=== PATIENT | male | born 1955 | race Caucasian/White ===

== ENCOUNTER 2017-04-16 01:41 | Emergency (ER) | payer OTHER ==
[2017-04-16] MEDS ORDERED: Ondansetron INJ* 2 MG/ML VIAL IV ONE ×2 (02:00→03:16)
[2017-04-16] MEDS ORDERED: NS 0.9% 1000 ML* 1,000 ML IV ONE (02:00)
[2017-04-16] MEDS ORDERED: Morphine INJ* 2 MG/ML 1 ML SYRINGE IV ONE ×2 (02:00→03:16)
[2017-04-16 02:22] LABS: Hematocrit 49 % (42-52); Hemoglobin 16.7 g/dl (14.0-18.0); Mean Corpuscular HGB Conc 34 g/dl (31-36); Mean Corpuscular Hemoglobin 29 pg (27-31); Mean Corpuscular Volume 85 fL (80-94); Mean Platelet Volume 8 um3 (7.4-10.4); Red Blood Count 5.73 10^6/ul (4.0-5.4); Red Cell Distribution Width 13 % (10.5-15); White Blood Count 11.3 10^3/ul (3.5-10.8)
[2017-04-16 02:45] LABS: Albumin 4.1 g/dL (3.2-5.2); BUN/Creatinine Ratio 23.2 (8-20); C Reactive Protein 3.79 mg/L (< 5.00); Calcium 9.1 mg/dL (8.6-10.3); EGFR Non-African American 66.9 (>60); Globulin 2.5 g/dL (2-4); Potassium 3.6 mmol/L (3.5-5.0); Total Bilirubin 2.4 mg/dL (0.2-1.0); Total Protein 6.6 g/dL (6.4-8.9)
[2017-04-16] MEDS ORDERED: Iohexol 300* (CONTRAST) 10 ML SDV IV ONE (03:02)
--- NOTE | 2017-04-16 05:11 | ED ---
Arianne Falcon Edward, scribed for Remy Helms MD on 04/16/17 at 0200 . Abdominal Pain/Male - HPI Summary HPI Summary: 61 y/o male presents to ED c/o intermittent RUQ ABD pain for 2 days. The pain has gotten progressively worse since it started, most severe at 21:00 tonight. The pain radiates to the rest of the ABD and is aggravated by laying down. Associated sx: N/V. PMHx HTN. - History of Current Complaint Stated Complaint: ABD PAIN Hx Obtained From: Patient Onset/Duration: Gradual Onset, Lasting Days - 2 days ago Timing: Intermittent Location: Discrete At: RUQ Associated Signs And Symptoms: Positive: Nausea, Vomiting - Allergies/Home Medications Allergies/Adverse Reactions: Allergies Allergy/AdvReac Type Severity Reaction Status Date / Time No Known Allergies Allergy Verified 06/01/16 10:07 PMH/Surg Hx/FS Hx/Imm Hx Previously Healthy: No Endocrine/Hematology History: Denies: Hx Diabetes Cardiovascular History: Reports: Hx Hypertension Denies: Hx Angina, Hx Coronary Artery Disease, Hx Hypercholesterolemia, Hx Myocardial Infarction, Hx Valvular Heart Disease Respiratory History: Denies: Hx Asthma, Hx Chronic Obstructive Pulmonary Disease (COPD) Sensory History: Reports: Hx Vision Problem Opthamlomology History: Reports: Hx Vision Problem - Surgical History Surgery Procedure, Year, and Place: vasectomy and lipoma removals - Family History Known Family History: Positive: Cardiac Disease - angina but not CT, Hypertension - Social History Alcohol Use: Weekly Alcohol Amount: 3-4 drinks/week Hx Substance Use: No Substance Use Type: Reports: None Hx Tobacco Use: No Smoking Status (MU): Never Smoked Tobacco Review of Systems Constitutional: Negative Eyes: Negative ENT: Negative Cardiovascular: Negative Respiratory: Negative Positive: Abdominal Pain - @ RUQ, Vomiting, Nausea Genitourinary: Negative Musculoskeletal: Negative Skin: Negative Neurological: Negative Psychological: Normal All Other Systems Reviewed And Are Negative: Yes Physical Exam Triage Information Reviewed: Yes Vital Signs On Initial Exam: Initial Vitals Temp Pulse Resp BP Pulse Ox 96.9 F 66 18 175/103 98 04/16/17 01:41 04/16/17 01:41 04/16/17 01:41 04/16/17 01:41 04/16/17 01:41 Vital Signs Reviewed: Yes Appearance: Positive: Well-Appearing, Pain Distress - mild discomfort, Obese Skin: Positive: Warm Head/Face: Positive: Normal Head/Face Inspection Eyes: Positive: REGINO ENT: Positive: Hearing grossly normal Neck: Positive: Supple Respiratory/Lung Sounds: Positive: Clear to Auscultation, Breath Sounds Present Cardiovascular: Positive: RRR Abdomen Description: Positive: No Organomegaly, Soft, Other: - mild ruq tenderness Bowel Sounds: Positive: Present Musculoskeletal: Positive: Strength/ROM Intact Neurological: Positive: Alert, Oriented to Person Place, Time Diagnostics - Vital Signs Vital Signs Temp Pulse Resp BP Pulse Ox 04/16/17 04:30 64 133/86 93 04/16/17 04:21 136/83 04/16/17 04:09 63 95 04/16/17 04:00 64 124/77 94 04/16/17 03:30 61 128/84 94 04/16/17 03:20 14 04/16/17 03:00 58 152/88 95 04/16/17 02:30 57 147/89 93 04/16/17 02:23 55 161/86 95 04/16/17 02:17 16 04/16/17 02:00 60 93 04/16/17 01:58 63 94 04/16/17 01:56 147/95 04/16/17 01:51 96.9 F 66 18 175/103 98 04/16/17 01:41 96.9 F 66 18 175/103 98 - Laboratory Lab Results: Lab Results 04/16/17 04/16/17 04/16/17 Range/Units 02:10 02:10 02:10 WBC 11.3 H (3.5-10.8) 10^3/ul RBC 5.73 H (4.0-5.4) 10^6/ul Hgb 16.7 (14.0-18.0) g/dl Hct 49 (42-52) % MCV 85 (80-94) fL MCH 29 (27-31) pg MCHC 34 (31-36) g/dl RDW 13 (10.5-15) % Plt Count 172 (150-450) 10^3/ul MPV 8 (7.4-10.4) um3 Neut % (Auto) 67.0 (38-83) % Lymph % (Auto) 23.3 L (25-47) % [place] % (Auto) 7.6 (1-9) % Eos % (Auto) 1.4 (0-6) % Baso % (Auto) 0.7 (0-2) % Absolute Neuts (auto) 7.6 (1.5-7.7) 10^3/ul Absolute Lymphs (auto) 2.6 (1.0-4.8) 10^3/ul Absolute Monos (auto) 0.9 H (0-0.8) 10^3/ul Absolute Eos (auto) 0.2 (0-0.6) 10^3/ul Absolute Basos (auto) 0.1 (0-0.2) 10^3/ul Absolute Nucleated RBC 0.03 10^3/ul Nucleated RBC % 0.2 Sodium 139 (133-145) mmol/L Potassium 3.6 (3.5-5.0) mmol/L Chloride 105 (101-111) mmol/L Carbon Dioxide 26 (22-32) mmol/L Anion Gap 8 (2-11) mmol/L BUN 26 H (6-24) mg/dL Creatinine 1.12 (0.67-1.17) mg/dL Est GFR ( Amer) 86.0 (>60) Est GFR (Non-Af Amer) 66.9 (>60) BUN/Creatinine Ratio 23.2 H (8-20) Glucose 115 H (70-100) mg/dL Lactic Acid 0.6 (0.5-2.0) mmol/L Calcium 9.1 (8.6-10.3) mg/dL Magnesium 2.0 (1.9-2.7) mg/dL Total Bilirubin 2.40 H (0.2-1.0) mg/dL AST 202 H (13-39) U/L ALT 157 H (7-52) U/L Alkaline Phosphatase 102 (34-104) U/L C-Reactive Protein 3.79 (< 5.00) mg/L Total Protein 6.6 (6.4-8.9) g/dL Albumin 4.1 (3.2-5.2) g/dL Globulin 2.5 (2-4) g/dL Albumin/Globulin Ratio 1.6 (1-3) Lipase 25 (11.0-82.0) U/L Result Diagrams: 04/16/17 02:10 04/16/17 02:10 Lab Statement: Any lab studies that have been ordered have been reviewed, and results considered in the medical decision making process. - CT ABD/PEL CT CT Interpretation: No Acute Changes - Gallstones. Splenic Scarring. No definite acute pathology. CT Interpretation Completed By: Radiologist Re-Evaluation - Re-Evaluation 1 Re-Evaluation Time: 05:06 Change: Improved Comment: resulkts d/w pt Abdominal Pain Fem Course/Dx - Course Assessment/Plan: 61 y/o male presents to ED c/o intermittent RUQ ABD pain for 2 days. The pain has gotten progressively worse since it started, most severe at 21:00 tonight. The pain radiates to the rest of the ABD and is aggravated by laying down. Associated sx: N/V. PMHx HTN. ABD/PEL CT showed: Gallstones. Splenic Scarring. No definite acute pathology. Patient will be discharged home with Biliary Colic, f/u with PCP. - Diagnoses Provider Diagnoses: Biliary colic Discharge - Discharge Plan Condition: Improved Disposition: HOME Patient Education Materials: Biliary Colic (ED), Diet for Stomach Ulcers and Gastritis (ED) Referrals: Kirit Oh MD [Primary Care Provider] - 3 Days (Please f/u in 2-3 days) The documentation as recorded by the Arianne ellington Edward accurately reflects the service I personally performed and the decisions made by , Remy Helms MD.
[2017-04-16 05:19] VITALS: BP 140/74
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
== END 2017-04-16 05:18 | disposition home or self-care (01) ==
LOC: ED 01:41
DX: K80.50 Calculus of bile duct without cholangitis or cholecystitis without obstruction (principal); R11.2 Nausea with vomiting, unspecified; I10 Essential (primary) hypertension; E66.9 Obesity, unspecified; K57.30 Diverticulosis of large intestine without perforation or abscess without bleeding; R16.1 Splenomegaly, not elsewhere classified
CPT/HCPCS: 36415; 74177; 80053; 83605; 83690; 83735; 85025; 86140; 96374; 96375; 96376; 99285; J2270; J2405; Q9967

== ENCOUNTER 2017-05-30 09:22 | Day surgery (SDC) | payer OTHER ==
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
[~2017-05-30 09:22] MED LIST: Buffered Lidocaine 0.9% SYRIN* 5 ML/SYR SYRINGE INTRADERM ONE; Dexamethasone IV* 4 MG/ML 1 ML (4 MG) ONE; DiMENhydriNATE IV* 50 MG/ML VIAL ONE; Famotidine IV* 10 MG/ML 2 ML (20 mg) IV ONE; Ketorolac INJ* 30 MG/ML 1 ML VIAL ONE; Lidocaine 2% PF * 5 ML VIAL ONE; Midazolam* 1 MG/ML 5 ML VIAL (5 MG) ONE; Ondansetron INJ* 2 MG/ML VIAL ONE; Propofol* 10 MG/ML 20 ML BTL IV PUSH ONE; Succinylcholine* 20 MG/ML 10 ML VIAL ONE; fentaNYL* 50 MCG/ML 2 ML VIAL (100 MCG VIAL) ONE
[2017-05-30] MEDS ORDERED: ceFAZolin 2 GM PREMIX (*) 50 ML IVPB ONE (09:28)
[2017-05-30] MEDS ORDERED: Famotidine IV* 10 MG/ML 2 ML (20 mg) ONE (09:28)
[2017-05-30] MEDS ORDERED: Buffered Lidocaine 0.9% SYRIN* 5 ML/SYR SYRINGE ONE (09:28)
[2017-05-30] MEDS ORDERED: Rocuronium* 10 MG/ML VIAL ONE (10:39)
[2017-05-30] MEDS ORDERED: Bupivacaine 0.25% SDV* 30 ML ONE (11:13)
[2017-05-30] MEDS ORDERED: DiMENhydriNATE IV* 50 MG/ML VIAL IV PUSH PRN (11:58)
[2017-05-30] MEDS ORDERED: HYDROmorphone INJ* 1 MG/ML CARPUJECT SYRINGE IV PRN (11:58)
[2017-05-30] MEDS ORDERED: oxyCODONE/Acetamin 5/325 MG* TAB PO PRN ×2 (11:58→13:08)
[2017-05-30] MEDS ORDERED: fentaNYL* 50 MCG/ML 2 ML VIAL (100 MCG VIAL) ONE (11:59)
[2017-05-30] MEDS ORDERED: HYDROmorphone INJ* 1 MG/ML CARPUJECT SYRINGE ONE ×2 (12:18→13:31)
[2017-05-30] MEDS ORDERED: hydrALAZINE IV* 20 MG/ML VIAL ONE (12:28)
[2017-05-30 14:37] VITALS: BP 118/74
--- NOTE | 2017-06-28 06:44 | OP ---
CC: [facility] OPERATIVE REPORT: DATE OF OPERATION: 05/30/17 DATE OF : 57 SURGEON: Baljit Earl MD. SENIOR COURTROOM CLERK: BRAD Smiley. ANESTHESIOLOGIST: Dr. Underwood. ANESTHESIA: General anesthesia. PRE-OP DIAGNOSIS: Cholecystitis. POST-OP DIAGNOSIS: Cholecystitis. OPERATIVE PROCEDURE: Laparoscopic cholecystectomy. BLOOD LOSS: Minimal blood loss. FLUIDS: 1400 cc of crystalloid fluid given. SPECIMEN: Gallbladder. DRAINS: None. INDICATIONS: The patient was identified in the preoperative area. This case discussed and the rosalind ent agreed. He signed consent after I went over the risks, benefits, and alternatives to the proced ure. DESCRIPTION OF PROCEDURE: He was taken back to the operating room and placed on the operating table in a supine position. Preoperative antibiotics were given. Sequential devices were placed on bilat eral lower extremities. General anesthesia was induced. The patient's abdomen was prepped and drap ed in standard surgical fashion and a time-out was performed. Folds of the umbilicus were elevated anteriorly and a Veress needle was inserted into the abdominal cavity, which was then allowed to insufflate to a pressure of 15 mmHg. A periumbilical incision was made and a 5 mm trocar was inserted. Laparoscope was inserted through this and there was no evidenc e of injury from the trocar insertion or from the Veress needle, which was then removed. Review of the abdomen showed no free fluid. The additional trocars were then placed in the following position : A 12 mm in the subxiphoid area and two 5 mm along the right costal margin. Table was repositioned and gallbladder was identified. The fundus was grasped and elevated above th e liver. The infundibulum identified. We could see a critical view of CBD. Peritoneum was then ta darshan with electrocautery off the medial aspect and the lateral aspects. The cystic duct was isolated as was the cystic artery. Both were doubly clipped and ligated. The gallbladder was removed from t he liver bed in a standard fashion, placed in endoscopic retrieval bag as usual, and removed through the subxiphoid port site. Review of the cystic duct stump, cystic artery stump in a routine fashio n showed no bleeding or bile. Abdomen was allowed to collapse. Trocars were removed under direct v ision. All 4 skin incisions were reapproximated with 4-0 Monocryl subcuticular sutures. Steri-Stri ps and sterile dressings were applied. The patient tolerated the procedure well, was woken up in th e OR and transferred to PACU in stable condition. [id number]/[facility] #: [id number]
== END 2017-05-30 15:08 | disposition home or self-care (01) ==
LOC: OR 09:22
PROVIDERS: ATTEND Surgery
DX: K80.10 Calculus of gallbladder with chronic cholecystitis without obstruction (principal); I48.0 Paroxysmal atrial fibrillation; I10 Essential (primary) hypertension; E78.5 Hyperlipidemia, unspecified; E66.9 Obesity, unspecified; Z79.82 Long term (current) use of aspirin; G47.33 Obstructive sleep apnea (adult) (pediatric)
CPT/HCPCS: 88304; J0330; J0360; J0690; J1100; J1170; J1240; J1885; J2250; J2405; J2704; J3010

== ENCOUNTER 2017-07-06 16:18 | Emergency (ER) | payer OTHER ==
--- NOTE | 2017-07-06 17:51 | RAD ---
INDICATION: RIGHT side flank pain; nausea and vomiting. Question kidney stones. COMPARISON: April 16, 2017 TECHNIQUE: Multidetector CT images were obtained from the lung bases to the ischial tuberosities. Evaluation of the viscera is limited without IV contrast. Multiplanar reformation. REPORT: Minimal bibasilar subsegmental atelectasis. Post cholecystectomy. Unremarkable unenhanced liver and pancreas. Normal size spleen with peripheral concavity and probable dystrophic calcification similar to the prior exam without concern. Unremarkable upper GI, small bowel, and infra cecal appendix. Colonic diverticulosis most prominent at the sigmoid colon moderately severe without findings of acute diverticulitis. Negative for ascites or free air. Small fat-containing umbilical hernia without inflammatory change. Normal adrenal glands. Mild RIGHT hydronephrosis is traced to a 1 mm stone at the RIGHT ureterovesicular junction. Unremarkable LEFT kidney and ureter. Aside from the RIGHT UVJ stone the partially distended urinary bladder is unremarkable. Coarse calcification at the prostate. Symmetric seminal vesicles. Negative for lymphadenopathy. Atherosclerotic calcification of normal diameter abdominal aorta and common iliac arteries. Partial physiologic distention of the IVC. Osseous hemangioma noted at L1. No suspicious focal osseous lesions evident. IMPRESSION: Mild RIGHT hydronephrosis is traced to a 1 mm stone at the RIGHT ureterovesicular junction. Negative for additional urolithiasis.
[2017-07-06] MEDS ORDERED: Tamsulosin CAP* 0.4 MG PO ONE (18:23)
[2017-07-06 18:25] LABS: Urine Bilirubin Negative (Negative); Urine Glucose Negative (Negative); Urine Nitrite Negative (Negative)
[2017-07-06 18:55] VITALS: BP 136/78
--- NOTE | 2017-07-06 22:02 | ED ---
Josefa Falcon Alfonso, scribed for Memo Goldstein MD on 07/06/17 at 1719 . Abdominal Pain/Male - HPI Summary HPI Summary: This patient is a 61 year old M presenting to [facility] accompanied by with a chief complaint of intermittent right sided abdominal pain since 5 days ago, worse since 3 hours ago. The pain radiates to his back. The pain is currently resolved. The patient rates the pain 4/10 in severity. Symptoms aggravated by nothing. Symptoms alleviated by spontaneous resolution. Patient reports N/V. Patient denies urinary symptoms, and bowel symptoms. Last month he had a laparoscopic cholecystectomy performed by Dr. Earl. - History of Current Complaint Chief Complaint: EDFlankPain Stated Complaint: ABD PAIN/N/V Time Seen by Provider: 07/06/17 17:05 Hx Obtained From: Patient Onset/Duration: Sudden Onset, Lasting Days - 5, Worse Since - 3 hours Timing: Intermittent Severity Currently: Moderate Pain Intensity: 4 Pain Scale Used: 0-10 Numeric Location: Other - Right sided Radiates: Yes Radiates to: Back Aggravating Factor(s): Nothing Alleviating Factor(s): Spontaneous Resolution Associated Signs And Symptoms: Positive: Other - N/V. Patient denies urinary symptoms, and bowel symptoms - Allergies/Home Medications Allergies/Adverse Reactions: Allergies Allergy/AdvReac Type Severity Reaction Status Date / Time No Known Allergies Allergy Verified 05/30/17 09:35 PMH/Surg Hx/FS Hx/Imm Hx Endocrine/Hematology History: Denies: Hx Diabetes Cardiovascular History: Reports: Hx Hypertension Denies: Hx Angina, Hx Coronary Artery Disease, Hx Hypercholesterolemia, Hx Myocardial Infarction, Hx Valvular Heart Disease Respiratory History: Reports: Hx Sleep Apnea Denies: Hx Asthma, Hx Chronic Obstructive Pulmonary Disease (COPD) GI History: Denies: Other GI Disorders Musculoskeletal History: Reports: Hx Arthritis - HANDS LEFT KNEE Sensory History: Reports: Hx Contacts or Glasses - GLASSES, Hx Vision Problem Denies: Hx Hearing Aid Opthamlomology History: Reports: Hx Contacts or Glasses - GLASSES, Hx Vision Problem EENT History: Denies: Hx Deafness - Surgical History Surgery Procedure, Year, and Place: vasectomy and lipoma removals. laparoscopic cholecystectomy performed by Dr. Earl. Hx Anesthesia Reactions: No Infectious Disease History: No Infectious Disease History: Denies: Traveled Outside the [place] in Last 30 Days - Family History Known Family History: Positive: Cardiac Disease - angina but not [place], Hypertension - Social History Alcohol Use: Weekly Alcohol Amount: 3-4 drinks/week Hx Substance Use: No Substance Use Type: Reports: None Hx Tobacco Use: No Smoking Status (MU): Never Smoked Tobacco Review of Systems Negative: Fever Positive: Abdominal Pain, Vomiting, Nausea, Other - Negative bowel sx Positive: no symptoms reported All Other Systems Reviewed And Are Negative: Yes Physical Exam Triage Information Reviewed: Yes Vital Signs On Initial Exam: Initial Vitals Temp Pulse Resp BP Pulse Ox 98.0 F 65 20 140/89 95 07/06/17 16:31 07/06/17 16:31 07/06/17 16:31 07/06/17 16:31 07/06/17 16:31 Vital Signs Reviewed: Yes Appearance: Positive: Well-Appearing, No Pain Distress, Obese Skin: Positive: Warm, Skin Color Reflects Adequate Perfusion, Dry, Other - Well healed abdominal wound Head/Face: Positive: Normal Head/Face Inspection Eyes: Positive: Normal ENT: Positive: Normal ENT inspection Neck: Positive: Supple, Nontender Respiratory/Lung Sounds: Positive: Clear to Auscultation, Breath Sounds Present Cardiovascular: Positive: RRR Abdomen Description: Positive: Soft, Other: - RUQ and periumbilical tenderness. Bowel Sounds: Positive: Present Musculoskeletal: Positive: Normal Neurological: Positive: Normal, Sensory/Motor Intact, Alert, Oriented to Person Place, Time, CN Intact II-III Psychiatric: Positive: Normal, Affect/Mood Appropriate Diagnostics - Vital Signs Vital Signs Temp Pulse Resp BP Pulse Ox 07/06/17 16:31 98.0 F 65 20 140/89 95 - Laboratory Lab Results: Lab Results 07/06/17 Range/Units 18:10 Urine Color Yellow Urine Appearance Clear Urine pH 5.0 (5-9) Ur Specific Ebony 1.011 (1.010-1.030) Urine Protein Negative (Negative) Urine Ketones 1+ H (Negative) Urine Blood Negative (Negative) Urine Nitrate Negative (Negative) Urine Bilirubin Negative (Negative) Urine Urobilinogen Negative (Negative) Ur Leukocyte Esterase Negative (Negative) Urine Glucose Negative (Negative) Urine Ascorbic Acid * H (Negative) Lab Statement: Any lab studies that have been ordered have been reviewed, and results considered in the medical decision making process. - CT A/P CT Interpretation Completed By: Radiologist - Mild RIGHT hydronephrosis is traced to a 1 mm stone at the RIGHT ureterovesicular junction. Negative for additional urolithiasis. ED physician has reviewed this radiology report and agrees. Abdominal Pain Fem Course/Dx - Course Course Of Treatment: Mr. Leonard [resented with several days of intermittent right flank pain. He was found to have a right 1 mm UVJ stone with mild hydro and a negative U/A. He was treated in the usual fashion except that he did not want pain medications to go home. - Diagnoses Provider Diagnoses: Kidney stone on right side Discharge - Discharge Plan Condition: Stable Disposition: HOME Prescriptions: Tamsulosin CAP* [Flomax CAP*] 0.4 mg PO DAILY #7 cap Patient Education Materials: Kidney Stones (ED) Referrals: Kirit Oh MD [Primary Care Provider] - Aravind Garibay MD [Medical Doctor] - Additional Instructions: TAKE IBUPROFEN FOR THE PAIN NEEDED. RETURN TO THE EMERGENCY DEPARTMENT FOR CHANGING OR WORSENING SYMPTOMS. The documentation as recorded by the Josefa ellington Alfonso accurately reflects the service I personally performed and the decisions made by , Memo Goldstein MD.
== END 2017-07-06 18:54 | disposition home or self-care (01) ==
LOC: ED 16:18
DX: N20.0 Calculus of kidney (principal); R11.2 Nausea with vomiting, unspecified; R10.9 Unspecified abdominal pain
CPT/HCPCS: 74176; 81003; 99282